=== PATIENT | female | born 2005 | race Two or more races ===

== ENCOUNTER 2025-05-16 12:21 | Emergency (ER) | payer BC ==
[~2025-05-16] VITALS: Ht 154.9 cm; Wt 47.6 kg
[2025-05-16] MEDS ORDERED: BUSPIRONE HCL5 MG (12:38)
[2025-05-16] MEDS ORDERED: WELCHOL3.75 GM (12:38)
[2025-05-16] MEDS ORDERED: KETOROLAC TROMETHAMINE 15 MG VIAL IU ONE (13:00)
[2025-05-16] MEDS ORDERED: 0.9 % SODIUM CHLORIDE 100 ML IV SCH (13:00)
[2025-05-16] MEDS ORDERED: KETOROLAC TROMETHAMINE 30 MG VIAL ONE (13:22)
[2025-05-16 13:43] LABS: BASO % 0.4 % (0.1-1.2); EOS # 0.02 (0.04-0.54); EOS % 0.2 % (0.7-7.0); HEMOGLOBIN 12.3 g/dL (11.2-15.7); LYMPH # 1.03 (1.18-3.74); LYMPH % 12.7 % (19.3-53.1); MEAN CORPUSCULAR HEMOGLOBIN 29.1 pg (25.6-32.2); MONO # 0.42 (0.24-0.82); MONO % 5.2 % (4.7-12.5); NEUT % 81.3 % (34.0-71.1); PLATELET COUNT 267 K/uL (163-369); RED BLOOD COUNT 4.22 M/uL (3.93-5.22); RED CELL DISTRIBUTION WIDTH 11.6 % (11.6-14.4)
[2025-05-16 14:05] LABS: ALBUMIN 4.1 gm/dL (3.4-5.0); BILIRUBIN TOTAL 0.45 mg/dL (0.3-1.2); CALCIUM 9.2 mg/dL (8.5-10.1); CREATININE SERUM 0.85 mg/dL (0.55-1.02); GFR 86.16; GLOBULINA 3.8 G/DL (2.4-3.5); POTASSIUM 3.68 mEq/L (3.5-5.1); TOTAL PROTEIN 7.9 gm/dL (6.4-8.2)
== END 2025-05-16 16:08 | disposition home or self-care (01) ==
LOC: EMR PED 12:21 → ER 12:21 → EMR PED 13:11
PROVIDERS: General Practice
DX: R07.9 Chest pain, unspecified (principal); F41.8 Other specified anxiety disorders